=== PATIENT | male | born 1995 | race African-American/Black ===

== ENCOUNTER 2020-02-20 10:13 | Emergency (ER) | payer OTHER ==
[~2020-02-20] VITALS: Ht 162.6 cm; Wt 61.2 kg
[2020-02-20 10:31] VITALS: BP 120/76
--- NOTE | 2020-02-20 10:32 | NUR ---
ED Nurse Note:pt. c/o right wrist pain after playing baseball and falling yesterday, skin is intact, no deformities noted
--- NOTE | 2020-02-20 10:56 | NUR ---
ED Nurse Note: x ray taken at bedside
--- NOTE | 2020-02-20 11:06 | Emergency Room Report ---
History of Present Illness General Chief Complaint: Upper Extremity Injury Source: Patient Present Illness HPI This patient states that he is playing basketball yesterday afternoon and he fell and landed on his right outstretched arm. He states that he has had right wrist pain ever since. Pain is worse with movement. He has no other injuries or complaints. Allergies: Uncoded Allergies: POLLEN (Allergy, Unknown, 02/20/20) COVID-19 Screening Contact w/high risk pt: No Experienced COVID-19 symptoms?: No COVID-19 Testing performed MOLD POLISHER: No Patient History Past Medical History: none Past Surgical History: none Social History: Denies: smoking, alcohol use, drug use Reviewed Nursing Documentation: PMH: Agreed; PSxH: Agreed Nursing Documentation-PMH Past Medical History: No Stated History Review of Systems All Other Systems: negative except mentioned in HPI Physical Exam Vital Signs Date Time Temp Pulse Resp B/P (MAP) Pulse Ox O2 Delivery O2 Flow Rate FiO2 02/20/20 10:17 98.6 72 18 120/76 (91) 97 Room Air Sp02 EP Interpretation: reviewed, normal General Appearance: no apparent distress, alert, GCS 15, non-toxic Head: normocephalic, atraumatic Eyes: bilateral eye normal inspection ENT: hearing grossly normal, no angioedema, normal voice Neck: normal inspection, full range of motion Respiratory: no respiratory distress, no retraction, no accessory muscle use, speaking full sentences Cardiovascular #1: regular rate, rhythm, no edema Rectal: deferred Musculoskeletal: back normal, normal range of motion, gait/station normal, tender - TTP over the R. wrist dorsal and lateral aspect. +mild swelling. No deformity. Neurologic: alert, motor strength/tone normal, oriented x3, sensory intact, responsive, speech normal Psychiatric: judgement/insight normal, memory normal, mood/affect normal, no suicidal/homicidal ideation Skin: no rash, normal color Procedures Splinting Splinting : Consent: Verbal Location: R. wrist Pre-Made Type: velcro Splint: thumb spica Pre-Proc Neuro Vasc Exam: normal Post-Proc Neuro Vasc Exam: normal Patient Tolerated: Well Complications: None Medical Decision Making Diagnostic Impression: Primary Impression: Right wrist sprain ER Course This patient has findings on exam consistent with a wrist sprain. X-ray of the right wrist shows no obvious fracture. The patient was placed in a splint for comfort. He is given very close return precautions and follow-up instructions. I warned the patient that plain x-rays have a significant false-negative rate. Factors, significant soft tissue injuries, and other pathology may be present even though not seen on x-ray. Injuries serious enough to ultimately require surgery may be present with normal x-rays. This can occur because some fractures or not initially visible on plain film x-rays or, rarely, the radiologist may discover a subtle fracture that I missed on my preliminary read. It was explained that close outpatient followup is required to evaluate this possibility. If all symptoms resolve or improve significantly in the coming weeks, no further testing is needed. However, if the pain/symptoms persist, additional studies such as MRI/CT or repeat x-ray would be needed to rule out the possibility of serious soft tissue injury. The patient agreed to followup as directed. Other X-Ray Diagnostic Results Other X-Ray Diagnostic Results : X-Ray ordered: R. wrist xray # of Views/Limited Vs Complete: Complete Indication: Pain EP Interpretation: Yes Electronically Signed by: Autumn Ashford DO Last Vital Signs Date Time Temp Pulse Resp B/P (MAP) Pulse Ox O2 Delivery O2 Flow Rate FiO2 02/20/20 10:31 98.6 18 120/76 97 Room Air 02/20/20 10:17 72 Status: improved Disposition: HOME, SELF-CARE Condition: Improved Referrals: NOT CHOSEN IPA/,REFERRING (PCP) Autumn Ashford DO Feb 20, 2020 11:06
--- NOTE | 2020-02-20 11:17 | Diagnostic Imaging Report ---
Clinical Indication:Trauma, pain Technique: 3 views of the right wrist Comparison: None Findings: No acute fractures. No dislocations. The joint spaces are preserved. Bony alignment is normal. Impression: No acute process
[2020-02-20 12:15] VITALS: BP 120/76
--- NOTE | 2020-02-20 12:15 | NUR ---
ED Nurse Note: Pt cleared by health care Provider for discharge. DC instructions/prescription was given and explained to pt and verbalized understanding of teachings. All medical deviecs such as ID band removed. Pt is AAO x4, ambulatory and left with all personal belongings.
== END 2020-02-20 12:15 | disposition home or self-care (01) ==
LOC: EMR 10:32
DX: S63.501A Unspecified sprain of right wrist, initial encounter (principal); W01.0XXA Fall on same level from slipping, tripping and stumbling without subsequent striking against object, initial encounter; Y93.67 Activity, basketball; Y92.9 Unspecified place or not applicable; Z91.09 Other allergy status, other than to drugs and biological substances
CPT/HCPCS: 99283